=== PATIENT | female | born 1960 | race Caucasian/White ===

== ENCOUNTER 2017-04-14 06:11 | Inpatient (IN) | payer MEDICARE, MEDICAID ==
[~2017-04-14] VITALS: Ht 152.4 cm; Wt 54.0 kg
[2017-04-14 07:01] LABS: BASOPHILS % 0.8 % (0.0-2.0); EOSINOPHILS % 4.2 % (0.0-5.0); HEMATOCRIT. 29.6 % (36.0-48.0); HEMOGLOBIN. 9.8 g/dL (12.0-16.0); LYMPHOCYTES % 7.1 % (20.0-50.0); MEAN CORPUSCULAR HEMOGLOBIN 30.8 pg (28.0-32.0); MEAN CORPUSCULAR VOLUME 93.3 fL (81.0-99.0); MEAN PLATELET VOLUME 9.4 fl (7.4-10.4); MONOCYTES % 5.9 % (2.0-8.0); PLATELET 150 x1000/uL (130-400); RED BLOOD CELL COUNT 3.17 mill/uL (4.2-5.4)
[2017-04-14 07:06] LABS: PROTHROMBIN TIME 10.1 sec (9.4-11.6)
[2017-04-14 07:16] LABS: CARBON DIOXIDE 27 mEq/L (21-32); CHLORIDE 92 mEq/L (98-107); TROPONIN I < 0.02 ng/mL (0.00-0.04)
[2017-04-14 08:32] LABS: BG BASE EXCESS 3.3 mmol/L (-2.0-2.0); BG CARBOXYHEMOGLOBIN 0.8 % (0.5-1.5); BG DEOXYHEMOGLOBIN 0.9 % (0.0-5.0); BG FRACTION INSPIRED OXYGEN 40; BG HCO3 ACT 28.2 mmol/L (22.0-26.0); BG METHEMOGLOBIN 0.1 % (0.0-1.5); BG OXYGEN SATURATION 99.1 % (92.0-98.5); BG OXYHEMOGLOBIN 98.2 % (94.0-97.0); BG PCO2 44.6 mmHg (35.0-45.0); BG PH 7.419 (7.350-7.450); BG PO2 191.2 mmHg (75.0-100.0); BG PRESSURE SUPPORT 7; BG SAMPLE SITE RIGHT RADIAL; BG TOTAL HEMOGLOBIN 10.4 g/dL (12.0-18.0); BG VENT MODE MASK - BIPAP; BG VENT RATE 12 set
[2017-04-14] MEDS ORDERED: ENALAPRIL 2.5MG/2ML VIAL 2ML IV ONE (09:00)
[2017-04-14] MEDS ORDERED: GUAIFENESIN 200MG/10ML SUGAR FREE UDC PO PRN (16:30)
[2017-04-14] MEDS ORDERED: IPRATROPIUM/ALBUTEROL 0.5-3(2.5)MG/3ML NEB INH PRN (16:30)
[2017-04-14] MEDS: CLONIDINE 0.1MG TABLET PO PRN (17:11)
[2017-04-14] MEDS: ACETAMINOPHEN 325MG TABLET PO PRN (17:11)
[2017-04-14] MEDS: AMLODIPINE 10MG TABLET PO SCH (17:11)
[2017-04-14] MEDS: HYDRALAZINE HCL 100MG TABLET PO SCH (19:56)
[2017-04-14] MEDS: METOPROLOL TARTRATE 25MG TABLET PO SCH (19:56)
[2017-04-14] MEDS: HYDROMORPHONE HCL/PF 2MG/ML CPJ IV PRN (22:53)
[2017-04-14] MEDS: ONDANSETRON HCL 4MG/2ML VIAL IV PRN (23:32)
[2017-04-15] VITALS (50 sets, daily range): BP systolic 129–218; BP diastolic 59–131
[2017-04-15] MEDS: HYDRALAZINE HCL 100MG TABLET PO SCH ×3 (03:29→19:34)
[2017-04-15] MEDS: ONDANSETRON HCL 4MG/2ML VIAL IV PRN ×3 (03:29→23:49)
[2017-04-15] MEDS: METOPROLOL TARTRATE 25MG TABLET PO SCH ×3 (04:54→21:17)
[2017-04-15] MEDS: CLONIDINE 0.1MG TABLET PO PRN (04:55)
[2017-04-15] MEDS: HYDROMORPHONE HCL/PF 2MG/ML CPJ IV PRN ×2 (06:23→15:23)
[2017-04-15 06:49] LABS: BASOPHILS % 0.6 % (0.0-2.0); EOSINOPHILS % 1.2 % (0.0-5.0); HEMATOCRIT. 31.7 % (36.0-48.0); HEMOGLOBIN. 10.4 g/dL (12.0-16.0); LYMPHOCYTES % 7.9 % (20.0-50.0); MEAN CORPUSCULAR HEMOGLOBIN 30.7 pg (28.0-32.0); MEAN CORPUSCULAR VOLUME 93.4 fL (81.0-99.0); MONOCYTES % 3.3 % (2.0-8.0); PLATELET 199 x1000/uL (130-400); RED BLOOD CELL COUNT 3.39 mill/uL (4.2-5.4); RED CELL DISTRIBUTION WIDTH 15.1 % (11.6-14.6)
[2017-04-15 07:36] LABS: CARBON DIOXIDE 26 mEq/L (21-32); CHLORIDE 93 mEq/L (98-107)
[2017-04-15] MEDS ORDERED: NICARDIPINE 100 MG in SODIUM CHLORIDE 0.9% 60 ML IV PRN (07:45)
[2017-04-15] MEDS: NICARDIPINE 50 MG in SODIUM CHLORIDE 0.9% 230 ML IV PRN ×2 (08:40→19:22)
[2017-04-15] MEDS: AMLODIPINE 10MG TABLET PO SCH (09:00)
[2017-04-15] MEDS: ASPIRIN 81MG EC TABLET PO SCH (09:00)
[2017-04-15] MEDS: DIPHENHYDRAMINE 50MG/ML VIAL IV PRN (17:32)
[2017-04-15] MEDS: MORPHINE SULFATE 2 MG/ML CPJ (NOT FOR IM USE) IV PRN (23:50)
[2017-04-16] VITALS (74 sets, daily range): BP systolic 103–179; BP diastolic 53–108
[2017-04-16] MEDS: NICARDIPINE 50 MG in SODIUM CHLORIDE 0.9% 230 ML IV PRN ×4 (01:55→21:43)
[2017-04-16 04:51] LABS: EOSINOPHILS % 1.3 % (0.0-5.0); HEMATOCRIT. 33.2 % (36.0-48.0); LYMPHOCYTES % 12.6 % (20.0-50.0); MEAN CORPUSCULAR HEMOGLOBIN 31.2 pg (28.0-32.0); MEAN CORPUSCULAR VOLUME 94.1 fL (81.0-99.0); MEAN PLATELET VOLUME 8.6 fl (7.4-10.4); NEUTROPHILS % 76.1 % (40.0-76.0); PLATELET 236 x1000/uL (130-400); RED BLOOD CELL COUNT 3.53 mill/uL (4.2-5.4); RED CELL DISTRIBUTION WIDTH 15.4 % (11.6-14.6)
[2017-04-16] MEDS: HYDRALAZINE HCL 100MG TABLET PO SCH ×3 (04:57→21:48)
[2017-04-16] MEDS: METOPROLOL TARTRATE 25MG TABLET PO SCH ×2 (09:00→21:06)
[2017-04-16] MEDS: AMLODIPINE 10MG TABLET PO SCH (09:00)
[2017-04-16] MEDS: ASPIRIN 81MG EC TABLET PO SCH (09:00)
[2017-04-16] MEDS: DOCUSATE SODIUM 100MG CAPSULE PO PRN (12:24)
[2017-04-16] MEDS: MORPHINE SULFATE 2 MG/ML CPJ (NOT FOR IM USE) IV PRN (15:17)
[2017-04-16] MEDS: ONDANSETRON HCL 4MG/2ML VIAL IV PRN ×2 (16:17→21:43)
[2017-04-16] MEDS: CLONIDINE 0.1MG TABLET PO PRN (17:05)
[2017-04-16] MEDS ORDERED: PIPERACILLIN/TAZ 3.375G PREMIX 50 ML IV SCH (17:45)
[2017-04-16] MEDS: DIPHENHYDRAMINE 50MG/ML VIAL IV PRN (17:55)
[2017-04-16] MEDS: PANTOPRAZOLE SODIUM 40 MG/VIAL IV SCH (17:55)
[2017-04-16] MEDS: PIPERACILLIN/TAZ 2.25G PREMIX 50 ML IV SCH (21:06)
[2017-04-16] MEDS: KETOROLAC 15MG/ML VIAL IV PRN (22:32)
[2017-04-17] VITALS (77 sets, daily range): BP systolic 115–172; BP diastolic 24–111
[2017-04-17] MEDS: ACETAMINOPHEN 325MG TABLET PO PRN ×2 (00:37→11:56)
[2017-04-17] MEDS: NICARDIPINE 50 MG in SODIUM CHLORIDE 0.9% 230 ML IV PRN ×4 (01:41→15:33)
[2017-04-17] MEDS: ONDANSETRON HCL 4MG/2ML VIAL IV PRN (04:11)
[2017-04-17] MEDS: HYDRALAZINE HCL 100MG TABLET PO SCH ×3 (04:48→20:21)
[2017-04-17] MEDS: DIPHENHYDRAMINE 50MG/ML VIAL IV PRN (04:48)
[2017-04-17] MEDS: PIPERACILLIN/TAZ 2.25G PREMIX 50 ML IV SCH ×3 (04:48→20:22)
[2017-04-17] MEDS ORDERED: PROCHLORPERAZINE 10MG/2ML VIAL IV PRN (05:00)
[2017-04-17] MEDS: KETOROLAC 15MG/ML VIAL IV PRN (05:03)
[2017-04-17 05:42] LABS: BASOPHILS % 0.8 % (0.0-2.0); HEMATOCRIT. 31.2 % (36.0-48.0); HEMOGLOBIN. 10.4 g/dL (12.0-16.0); LYMPHOCYTES % 8.9 % (20.0-50.0); MEAN CORPUSCULAR HEMOGLOBIN 31.4 pg (28.0-32.0); MEAN CORPUSCULAR VOLUME 94.6 fL (81.0-99.0); MONOCYTES % 4.4 % (2.0-8.0); NEUTROPHILS % 85.9 % (40.0-76.0); RED BLOOD CELL COUNT 3.29 mill/uL (4.2-5.4); RED CELL DISTRIBUTION WIDTH 15.1 % (11.6-14.6)
[2017-04-17] MEDS: PANTOPRAZOLE SODIUM 40 MG/VIAL IV SCH (08:43)
[2017-04-17] MEDS: SEVELAMER CARBONATE 800 MG TABLET PO SCH ×3 (08:43→16:51)
[2017-04-17] MEDS: AMLODIPINE 10MG TABLET PO SCH (08:44)
[2017-04-17] MEDS: ASPIRIN 81MG EC TABLET PO SCH (08:44)
[2017-04-17] MEDS: DOCUSATE SODIUM 100MG CAPSULE PO PRN (08:44)
[2017-04-17] MEDS: METOPROLOL TARTRATE 25MG TABLET PO SCH ×2 (08:44→20:22)
[2017-04-17 09:50] LABS: MEAN PLATELET VOLUME 8.8 fl (7.4-10.4); PLATELET 210 x1000/uL (130-400)
[2017-04-17] MEDS ORDERED: DEXTROSE 50% WATER 50ML SYRINGE IV PRN (11:00)
[2017-04-17 11:07] LABS: PHOSPHORUS 1.6 mg/dL (2.5-4.9)
[2017-04-17] MEDS: BLOOD SUGAR DIAGNOSTIC STRIP TEST SCH ×3 (11:34→20:22)
[2017-04-17] MEDS: INSULIN LISPRO 100 UNITS/ML SUBCUT SCH ×3 (11:42→20:40)
[2017-04-17] MEDS: METOCLOPRAMIDE HCL 5MG TABLET PO SCH ×2 (11:42→17:56)
[2017-04-17] MEDS ORDERED: METOCLOPRAMIDE HCL 10MG/2ML VIAL IV SCH (12:00)
[2017-04-17] MEDS ORDERED: LORA1TAB PO (12:45)
[2017-04-17] MEDS ORDERED: HYDR-4135 PO (12:45)
[2017-04-17] MEDS ORDERED: SERT-112 PO (12:45)
[2017-04-17] MEDS ORDERED: PRAV40TA58 PO (12:45)
[2017-04-17] MEDS ORDERED: METO25TA6 PO (12:45)
[2017-04-17] MEDS ORDERED: AMLO10TA80 PO (12:45)
[2017-04-17] MEDS ORDERED: CLON0.2T PO (12:45)
[2017-04-17] MEDS ORDERED: METOPROLOL TARTRATE 25MG TABLET PO SCH (13:00)
[2017-04-17] MEDS ORDERED: SERTRALINE HCL 100MG TABLET PO SCH (13:00)
[2017-04-17] MEDS ORDERED: HYDRALAZINE HCL 50MG TABLET PO SCH (13:00)
[2017-04-17] MEDS: CLONIDINE 0.2MG TABLET PO SCH ×2 (13:15→16:50)
[2017-04-17] MEDS: QUETIAPINE FUMARATE 25MG TABLET PO SCH (20:21)
[2017-04-17] MEDS: LORAZEPAM 1MG TABLET PO SCH (20:21)
[2017-04-17] MEDS ORDERED: POTASSIUM PHOS,M-BASIC-D-BASIC 10 MMOL in DEXT 5% WATER 246.6667 ML IV NR (21:00)
[2017-04-17 21:16] LABS: VITAMIN B12 SERUM 951 pg/mL (211-911)
[2017-04-18] VITALS (31 sets, daily range): BP systolic 122–166; BP diastolic 50–87
[2017-04-18] MEDS: METOCLOPRAMIDE HCL 5MG TABLET PO SCH ×4 (00:17→17:37)
[2017-04-18] MEDS: HYDRALAZINE HCL 100MG TABLET PO SCH ×3 (04:37→20:33)
[2017-04-18] MEDS: PIPERACILLIN/TAZ 2.25G PREMIX 50 ML IV SCH ×3 (04:38→20:32)
[2017-04-18 05:32] LABS: BASOPHILS % 0.9 % (0.0-2.0); EOSINOPHILS % 0.7 % (0.0-5.0); HEMATOCRIT. 32.2 % (36.0-48.0); HEMOGLOBIN. 10.8 g/dL (12.0-16.0); LYMPHOCYTES % 18.5 % (20.0-50.0); MEAN CORPUSCULAR HEMOGLOBIN 31.5 pg (28.0-32.0); MEAN PLATELET VOLUME 8.8 fl (7.4-10.4); MONOCYTES % 8.1 % (2.0-8.0); NEUTROPHILS % 71.8 % (40.0-76.0); PLATELET 255 x1000/uL (130-400); RED BLOOD CELL COUNT 3.43 mill/uL (4.2-5.4); RED CELL DISTRIBUTION WIDTH 15.5 % (11.6-14.6)
[2017-04-18] MEDS: SEVELAMER CARBONATE 800 MG TABLET PO SCH ×3 (06:25→17:37)
[2017-04-18] MEDS: BLOOD SUGAR DIAGNOSTIC STRIP TEST SCH ×4 (06:26→20:47)
[2017-04-18 06:28] LABS: TROPONIN I 0.08 ng/mL (0.00-0.04)
[2017-04-18] MEDS: INSULIN LISPRO 100 UNITS/ML SUBCUT SCH ×4 (06:37→20:47)
[2017-04-18] MEDS: PANTOPRAZOLE SODIUM 40 MG/VIAL IV SCH (09:25)
[2017-04-18] MEDS: CLONIDINE 0.2MG TABLET PO SCH ×3 (09:25→17:37)
[2017-04-18] MEDS: QUETIAPINE FUMARATE 25MG TABLET PO SCH ×2 (09:25→21:37)
[2017-04-18] MEDS: AMLODIPINE 10MG TABLET PO SCH (09:25)
[2017-04-18] MEDS: METOPROLOL TARTRATE 25MG TABLET PO SCH ×2 (09:25→21:38)
[2017-04-18] MEDS: ASPIRIN 81MG EC TABLET PO SCH (09:25)
[2017-04-18] MEDS: LORAZEPAM 1MG TABLET PO SCH (20:33)
[2017-04-19] VITALS (50 sets, daily range): BP systolic 140–181; BP diastolic 50–111
[2017-04-19] MEDS: METOCLOPRAMIDE HCL 5MG TABLET PO SCH ×5 (00:36→23:52)
[2017-04-19] MEDS: PIPERACILLIN/TAZ 2.25G PREMIX 50 ML IV SCH ×3 (04:17→20:21)
[2017-04-19] MEDS: HYDRALAZINE HCL 100MG TABLET PO SCH ×3 (04:17→20:22)
[2017-04-19 06:13] LABS: BASOPHILS % 0.4 % (0.0-2.0); EOSINOPHILS % 5.4 % (0.0-5.0); HEMATOCRIT. 30.5 % (36.0-48.0); HEMOGLOBIN. 10.3 g/dL (12.0-16.0); LYMPHOCYTES % 25.2 % (20.0-50.0); MEAN CORPUSCULAR HEMOGLOBIN 31.6 pg (28.0-32.0); MEAN CORPUSCULAR VOLUME 93.6 fL (81.0-99.0); MEAN PLATELET VOLUME 8.5 fl (7.4-10.4); MONOCYTES % 6.9 % (2.0-8.0); NEUTROPHILS % 62.1 % (40.0-76.0); PLATELET 231 x1000/uL (130-400); RED BLOOD CELL COUNT 3.25 mill/uL (4.2-5.4); RED CELL DISTRIBUTION WIDTH 15.3 % (11.6-14.6)
[2017-04-19] MEDS: SEVELAMER CARBONATE 800 MG TABLET PO SCH ×3 (06:14→17:26)
[2017-04-19] MEDS: INSULIN LISPRO 100 UNITS/ML SUBCUT SCH ×4 (06:17→20:34)
[2017-04-19] MEDS: BLOOD SUGAR DIAGNOSTIC STRIP TEST SCH ×4 (06:17→20:35)
[2017-04-19] MEDS: CLONIDINE 0.1MG TABLET PO PRN (06:26)
[2017-04-19] MEDS: PANTOPRAZOLE SODIUM 40 MG/VIAL IV SCH (10:18)
[2017-04-19] MEDS: AMLODIPINE 10MG TABLET PO SCH (10:18)
[2017-04-19] MEDS: QUETIAPINE FUMARATE 25MG TABLET PO SCH ×2 (10:19→20:23)
[2017-04-19] MEDS: DOCUSATE SODIUM 100MG CAPSULE PO PRN (10:19)
[2017-04-19] MEDS: CLONIDINE 0.2MG TABLET PO SCH ×3 (10:19→17:26)
[2017-04-19] MEDS: METOPROLOL TARTRATE 25MG TABLET PO SCH ×2 (10:19→21:03)
[2017-04-19] MEDS: ASPIRIN 81MG EC TABLET PO SCH (10:20)
[2017-04-19] MEDS: LORAZEPAM 1MG TABLET PO SCH (20:23)
[2017-04-20] VITALS: BP 169/66
[2017-04-20] MEDS: CLONIDINE 0.1MG TABLET PO PRN ×2 (00:50→12:55)
[2017-04-20] MEDS: ACETAMINOPHEN 325MG TABLET PO PRN (03:29)
[2017-04-20 04:00] VITALS: BP 210/68
[2017-04-20] MEDS: PIPERACILLIN/TAZ 2.25G PREMIX 50 ML IV SCH ×3 (05:01→21:20)
[2017-04-20] MEDS: METOCLOPRAMIDE HCL 5MG TABLET PO SCH ×3 (05:01→18:23)
[2017-04-20] MEDS: HYDRALAZINE HCL 100MG TABLET PO SCH ×3 (05:01→21:20)
[2017-04-20 06:13] LABS: EOSINOPHILS % 7.4 % (0.0-5.0); HEMATOCRIT. 30.2 % (36.0-48.0); HEMOGLOBIN. 10.1 g/dL (12.0-16.0); LYMPHOCYTES % 26.8 % (20.0-50.0); MEAN CORPUSCULAR VOLUME 92.5 fL (81.0-99.0); MEAN PLATELET VOLUME 8.5 fl (7.4-10.4); MONOCYTES % 9.7 % (2.0-8.0); NEUTROPHILS % 55.1 % (40.0-76.0); PLATELET 215 x1000/uL (130-400); RED BLOOD CELL COUNT 3.26 mill/uL (4.2-5.4); RED CELL DISTRIBUTION WIDTH 15.3 % (11.6-14.6)
[2017-04-20] MEDS: BLOOD SUGAR DIAGNOSTIC STRIP TEST SCH ×4 (06:44→21:21)
[2017-04-20 07:50] VITALS: BP 165/69
[2017-04-20] MEDS: INSULIN LISPRO 100 UNITS/ML SUBCUT SCH ×4 (07:50→21:22)
[2017-04-20] MEDS: SEVELAMER CARBONATE 800 MG TABLET PO SCH ×3 (09:18→18:23)
[2017-04-20] MEDS: ASPIRIN 81MG EC TABLET PO SCH (09:19)
[2017-04-20] MEDS: PANTOPRAZOLE SODIUM 40 MG/VIAL IV SCH (09:19)
[2017-04-20] MEDS: CLONIDINE 0.2MG TABLET PO SCH ×3 (09:19→18:23)
[2017-04-20] MEDS: QUETIAPINE FUMARATE 25MG TABLET PO SCH ×2 (09:20→21:20)
[2017-04-20] MEDS: METOPROLOL TARTRATE 25MG TABLET PO SCH ×2 (09:20→21:20)
[2017-04-20] MEDS: AMLODIPINE 10MG TABLET PO SCH (09:20)
[2017-04-20 11:45] VITALS: BP 150/75
[2017-04-20 16:00] VITALS: BP 165/68
[2017-04-20 20:00] VITALS: BP 140/74
[2017-04-20] MEDS: LORAZEPAM 1MG TABLET PO SCH (21:20)
[2017-04-21] VITALS: BP 179/81
[2017-04-21] MEDS: METOCLOPRAMIDE HCL 5MG TABLET PO SCH ×4 (00:18→17:40)
[2017-04-21] MEDS: CLONIDINE 0.1MG TABLET PO PRN (01:56)
[2017-04-21 04:00] VITALS: BP 188/75
[2017-04-21] MEDS: HYDRALAZINE HCL 100MG TABLET PO SCH ×3 (05:05→20:00)
[2017-04-21] MEDS: PIPERACILLIN/TAZ 2.25G PREMIX 50 ML IV SCH ×3 (05:05→19:56)
[2017-04-21] MEDS: BLOOD SUGAR DIAGNOSTIC STRIP TEST SCH ×4 (06:39→20:54)
[2017-04-21 06:45] LABS: BASOPHILS % 0.8 % (0.0-2.0); EOSINOPHILS % 7.9 % (0.0-5.0); HEMATOCRIT. 31.1 % (36.0-48.0); HEMOGLOBIN. 10.6 g/dL (12.0-16.0); LYMPHOCYTES % 26.8 % (20.0-50.0); MEAN CORPUSCULAR HEMOGLOBIN 31.6 pg (28.0-32.0); MEAN CORPUSCULAR VOLUME 92.6 fL (81.0-99.0); MEAN PLATELET VOLUME 8.6 fl (7.4-10.4); MONOCYTES % 9.7 % (2.0-8.0); NEUTROPHILS % 54.8 % (40.0-76.0); PLATELET 207 x1000/uL (130-400); RED BLOOD CELL COUNT 3.36 mill/uL (4.2-5.4); RED CELL DISTRIBUTION WIDTH 14.9 % (11.6-14.6)
[2017-04-21] MEDS: INSULIN LISPRO 100 UNITS/ML SUBCUT SCH ×4 (07:50→21:00)
[2017-04-21 08:00] VITALS: BP 198/78
[2017-04-21] MEDS: CLONIDINE 0.2MG TABLET PO SCH ×3 (08:34→17:40)
[2017-04-21] MEDS: SEVELAMER CARBONATE 800 MG TABLET PO SCH ×3 (08:34→17:40)
[2017-04-21] MEDS: PANTOPRAZOLE SODIUM 40 MG/VIAL IV SCH (08:34)
[2017-04-21] MEDS: METOPROLOL TARTRATE 25MG TABLET PO SCH ×2 (08:35→20:16)
[2017-04-21] MEDS: ASPIRIN 81MG EC TABLET PO SCH (08:35)
[2017-04-21] MEDS: AMLODIPINE 10MG TABLET PO SCH (08:35)
[2017-04-21] MEDS: QUETIAPINE FUMARATE 25MG TABLET PO SCH ×2 (08:35→20:33)
[2017-04-21 12:00] VITALS: BP 180/74
[2017-04-21] MEDS: LISINOPRIL 20MG TABLET PO SCH ×2 (12:53→20:17)
[2017-04-21 16:00] VITALS: BP 170/61
[2017-04-21 20:00] VITALS: BP 185/54
[2017-04-21] MEDS: LORAZEPAM 1MG TABLET PO SCH (20:33)
[2017-04-22] VITALS: BP 105/64
[2017-04-22] MEDS: METOCLOPRAMIDE HCL 5MG TABLET PO SCH (00:43)
[2017-04-22] MEDS: LORAZEPAM 1MG TABLET PO SCH (00:43)
[2017-04-22] MEDS: PIPERACILLIN/TAZ 2.25G PREMIX 50 ML IV SCH (00:44)
[2017-04-22] MEDS: BLOOD SUGAR DIAGNOSTIC STRIP TEST SCH (07:20)
[2017-04-22] MEDS: INSULIN LISPRO 100 UNITS/ML SUBCUT SCH (07:50)
[2017-04-22 08:00] VITALS: BP 191/76
[2017-04-22] MEDS: LISINOPRIL 20MG TABLET PO SCH (09:27)
[2017-04-22] MEDS: ASPIRIN 81MG EC TABLET PO SCH (09:28)
[2017-04-22] MEDS: HYDRALAZINE HCL 100MG TABLET PO SCH (09:28)
[2017-04-22] MEDS: SEVELAMER CARBONATE 800 MG TABLET PO SCH (09:28)
[2017-04-22] MEDS: CLONIDINE 0.2MG TABLET PO SCH (09:28)
[2017-04-22] MEDS: METOPROLOL TARTRATE 25MG TABLET PO SCH (09:29)
[2017-04-22] MEDS: AMLODIPINE 10MG TABLET PO SCH (09:29)
[2017-04-22] MEDS: QUETIAPINE FUMARATE 25MG TABLET PO SCH (09:29)
[2017-04-22] MEDS: PANTOPRAZOLE SODIUM 40 MG/VIAL IV SCH (09:30)
[2017-04-22 09:31] LABS: BASOPHILS % 0.5 % (0.0-2.0); EOSINOPHILS % 4.4 % (0.0-5.0); HEMATOCRIT. 32.3 % (36.0-48.0); HEMOGLOBIN. 10.8 g/dL (12.0-16.0); LYMPHOCYTES % 17.1 % (20.0-50.0); MEAN CORPUSCULAR HEMOGLOBIN 30.6 pg (28.0-32.0); MEAN CORPUSCULAR VOLUME 91.5 fL (81.0-99.0); MEAN PLATELET VOLUME 9.3 fl (7.4-10.4); MONOCYTES % 7.1 % (2.0-8.0); NEUTROPHILS % 70.9 % (40.0-76.0); PLATELET 234 x1000/uL (130-400); RED BLOOD CELL COUNT 3.53 mill/uL (4.2-5.4)
[2017-04-22 09:45] VITALS: BP 150/68
[2017-04-22 09:56] VITALS: BP 150/68
== END 2017-04-22 10:30 | disposition home health service (06) | DRG 291 ==
LOC: ER 06:11 → 5EST 14:22 → EDBEDREQTM 14:24 → EDBEDREQSVC 14:24 → ENRESERV 14:27 → CANRESERV 14:27 → SUPCPDRO 16:20 → CANBEDREQ 16:34 → EDBEDREQSVC 19:58 → ENRESERV 04-15 01:40 → MICUSO 04-15 07:30 → 6WST 04-20 00:15
PROVIDERS: ADMIT Hospitalist; ATTEND Hospitalist
PROC: 5A09357 Assistance with Respiratory Ventilation, Less than 24 Consecutive Hours, Continuous Positive Airway Pressure (ICD-10-PCS; 2017-04-14)
PROC: 02HV33Z Insertion of Infusion Device into Superior Vena Cava, Percutaneous Approach (ICD-10-PCS; principal; 2017-04-15)
PROC: B548ZZA Ultrasonography of Superior Vena Cava, Guidance (ICD-10-PCS; 2017-04-15)
PROC: 5A1D70Z Performance of Urinary Filtration, Intermittent, Less than 6 Hours Per Day (ICD-10-PCS; 2017-04-16)
PROC: 5A1D70Z Performance of Urinary Filtration, Intermittent, Less than 6 Hours Per Day (ICD-10-PCS; 2017-04-21)
DX: I13.2 Hypertensive heart and chronic kidney disease with heart failure and with stage 5 chronic kidney disease, or end stage renal disease (principal); J96.00 Acute respiratory failure, unspecified whether with hypoxia or hypercapnia; G93.40 Encephalopathy, unspecified; N18.6 End stage renal disease; I50.31 Acute diastolic (congestive) heart failure; I16.1 Hypertensive emergency; E87.1 Hypo-osmolality and hyponatremia; D63.1 Anemia in chronic kidney disease; E11.22 Type 2 diabetes mellitus with diabetic chronic kidney disease; E87.5 Hyperkalemia; F32.9 Major depressive disorder, single episode, unspecified; F41.9 Anxiety disorder, unspecified; F91.9 Conduct disorder, unspecified; H54.62 Unqualified visual loss, left eye, normal vision right eye; I49.3 Ventricular premature depolarization; Z63.8 Other specified problems related to primary support group; Z99.2 Dependence on renal dialysis; Z79.4 Long term (current) use of insulin; Z79.899 Other long term (current) drug therapy
CPT/HCPCS: 36415; 36569; 36600; 70450; 71010; 74176; 76937; 80048; 80053; 80076; 82375; 82607; 82805; 82962; 83690; 83735; 83880; 84100; 84443; 84484; 85025; 85610; 87040; 93005; 93306; 93970; 94660; 96374; 97110; 97116; 97162; 97166; 97530; 97535; 99285; C1725; C9113; J1170; J1200; J1815; J1885; J2270; J2405; J2543; J3490; J7030; J7050; J7060; J8597